=== PATIENT | male | born 1955 | race Caucasian/White ===

== ENCOUNTER 2020-02-04 13:19 | Inpatient (IN) | payer MEDICAID, OTHER ==
[~2020-02-04 13:19] MED LIST: VANCOMYCIN 1,750 MG in SODIUM CHLORIDE 0.9% 500 ML 500 ML IVPB SCH
[2020-02-04 16:49] LABS: Glucose,Whole Blood 105 mg/dL (75-99)
[2020-02-04] MEDS ORDERED: ACETAMINOPHEN TAB 500 MG TAB PO PRN (17:15)
[2020-02-04] MEDS ORDERED: LORATADINE 10 MG TAB PO PRN (17:15)
[2020-02-04] MEDS ORDERED: ALBUTEROL HFA INHALER INHALATION PRN (17:17)
[2020-02-04] MEDS ORDERED: VANCOMYCIN IV PER PHARMACY 1 EACH MISC MISCELLANE PRN (17:19)
[2020-02-04] MEDS ORDERED: NALOXONE 0.4 MG/ML 1 ML VIAL IV PRN (17:29)
--- NOTE | 2020-02-04 17:36 | P.HPIM ---
History of Present Illness H&P Date: 02/04/20 Chief Complaint: sob 64-year-old male with history of Atrial Fibrillation, Heart Failure, CVA/TIA, Diabetes Mellitus presented to the emergency department at [facility] for increasing shortness of breath and cough productive of yellow phlegm. No fevers or chills. He was also feeling dizzy and generally weak. He states he was just discharged from the hospital after he was treated for pneumonia, was given 2 day supply of antibiotics. He is not sure what the antibiotic that he took. He denied having diarrhea, urinary symptoms. No nausea or vomiting. No known sick contacts. Patient states that he was tested for covid 19 twice when he was admitted and it came back negative. In the emergency department his O2 sats were 86% on RA. He is currently requiring 5 L of oxygen. Lactic acid initial 3, follow up 1.3, CK 84, D-dimer 1.21, procal 0.2, flu swab -, CRP 3.71, trop 0.039, PTT 44.4, INR 2.8, PT 30. EKG atrial fibrillation with slow rate 49. CXR showed left lung base and right mid lung consolidation. 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 History of Any Multi-Drug Resistant Organisms: None Reported Past Surgical History: Cholecystectomy Additional Past Surgical History / Comment(s): Arthroscopic knee surgery for meniscus-pt cannot recall laterallity Past Anesthesia/Blood Transfusion Reactions: No Reported Reaction Smoking Status: Former smoker - Past Family History Father Family Medical History: Pneumonia Additional Family Medical History / Comment(s): Father from pneumonia following hip surgery. Mother Family Medical History: Cancer Additional Family Medical History / Comment(s): Mother from metastatic breast cancer. Medications and Allergies Home Medications Medication Instructions Recorded Confirmed Type Acetaminophen Tab [Tylenol Tab] 1,000 mg PO Q6H PRN 02/04/20 02/04/20 History Aspirin [[place] Aspirin EC] 81 mg PO DAILY 02/04/20 02/04/20 History Atorvastatin [Lipitor] 40 mg PO HS 02/04/20 02/04/20 History Carvedilol [Coreg] 6.25 mg PO BID 02/04/20 02/04/20 History Cetirizine HCl 10 mg PO DAILY PRN 02/04/20 02/04/20 History Divalproex Sodium [Depakote] 1,000 mg PO Q12H 02/04/20 02/04/20 History Ergocalciferol (Vitamin D2) 50,000 unit PO Q30D 02/04/20 02/04/20 History [Drisdol] Furosemide [Lasix] 40 mg PO DAILY 02/04/20 02/04/20 History Gabapentin [Neurontin] 300 mg PO HS 02/04/20 02/04/20 History Hydrocodone/Acetaminophen [[place] 1 tab PO QID PRN 02/04/20 02/04/20 History 10-325] Insulin Glargine,Hum.rec.anlog 30 unit SQ HS 02/04/20 02/04/20 History [Basaglar Kwikpen U-100] Ipratropium-Albuterol Nebulize 3 ml INHALATION RT-TID PRN 02/04/20 02/04/20 History [Duoneb 0.5 mg-3 mg/3 ml Soln] Lisinopril [Zestril] 5 mg PO DAILY 02/04/20 02/04/20 History Mirabegron [Myrbetriq] 50 mg PO DAILY 02/04/20 02/04/20 History Montelukast [Singulair] 10 mg PO DAILY 02/04/20 02/04/20 History Tamsulosin [Flomax] 0.4 mg PO DAILY 02/04/20 02/04/20 History Warfarin Sodium [Coumadin] 4 mg PO DAILY 02/04/20 02/04/20 History levETIRAcetam [Keppra] 500 mg PO Q12HR 02/04/20 02/04/20 History metFORMIN HCL [Glucophage] 500 mg PO BID 02/04/20 02/04/20 History sitaGLIPtin [Januvia] 100 mg PO DAILY 02/04/20 02/04/20 History Allergies Allergy/AdvReac Type Severity Reaction Status Date / Time No Known Allergies Allergy Verified 02/04/20 16:12 Physical Exam Vitals: Vital Signs Temp Pulse Resp BP Pulse Ox 02/04/20 15:02 98.0 F 47 L 24 168/78 100 Intake and Output 02/04/20 02/04/20 02/04/20 06:59 14:59 22:59 Intake Total 110 Balance 110 Intake: IV 10 Invasive Line 1 10 Oral 100 Other: Weight 99.9 kg Constitutional: No acute distress, conversant, pleasant Eyes:Anicteric sclerae, moist conjunctiva, no lid-lag, PERRLA, ENMT: Oropharynx clear, no erythema, exudates Neck: Supple, FROM, no masses, or JVD, No carotid bruits, No thyromegaly Lungs: Scattered rhonchi, Clear to percussion, Normal respiratory effort, no accessory muscle use Cardiovascular: Heart regular in rate and rhythm, No murmurs, gallops, or rubs, No peripheral edema Abdominal: Soft, Nontender, no guarding, rebound or rigidity, Normoactive bowel sounds, No hepatomegaly, No splenomegaly, No palpable mass Skin: Normal temperature, tone, texture, turgor, no induration, No subcutaneous nodules, No rash, lesions, No ulcers Extremities: No digital cyanosis, No clubbing, Pedal pulses intact and symmetrical, Radial pulses intact and symmetrical, No calf tenderness Psychiatric: Alert and oriented to person, place and time, appropriate affect, intact judgement Neuro: Muscles Strength 5/5 in all 4 extremities, Sensation to light touch grossly present throughout, Cranial nerves II-XII grossly intact, no focal sensory deficits Results Labs: Abnormal Lab Results - Last 24 Hours (Table) 02/04/20 Range/Units 16:47 POC Glucose (mg/dL) 105 H (75-99) mg/dL Thrombosis Risk Factor Assmnt - Choose All That Apply Any of the Below Risk Factors Present?: Yes Each Factor Represents 1 point: Obesity (BMI >25), or Other Risk Factors: Yes Each Risk Factor Represents 2 Points: Age 61-74 years Other congenital or acquired thrombophilia - If yes, enter type in comment: No Thrombosis Risk Factor Assessment Total Risk Factor Score: 4 Thrombosis Risk Factor Assessment Level: Moderate Risk Assessment and Plan Plan: Healthcare associated pneumonia Sputum cultures Blood cultures Send nasal screen for covid 19 Start broad-spectrum antibiotics cefepime and vancomycin Acute hypoxic respiratory failure secondary to above Steroids, albuterol inhaler Antibiotics as above Diabetes Mellitus 2, with peripheral neuropathy Sliding-scale insulin Hold oral meds Continue long-acting insulin Atrial Fibrillation, CHF Hx of CVA/TIA, Prostate Disorder Chronic back pain All stable Resume meds Patient admitted to inpatient, expected length of stay more than 2 midnights
[2020-02-04] MEDS ORDERED: VANCOMYCIN 2,000 MG in SODIUM CHLORIDE 0.9% 500 ML 500 ML IVPB ONE (18:00)
[2020-02-04] MEDS: methylPREDNISolone SOD SUCCI 40 MG/ML 1 ML VIAL IV SCH (18:35)
[2020-02-04] MEDS: CARVEDILOL 6.25 MG TAB PO SCH (18:35)
[2020-02-04] MEDS: HYDROcodone/APAP 10-325MG 1 EACH TAB PO PRN (18:36)
[2020-02-04 18:48] LABS: Basophils % (A) 1 %; Eosinophils % (A) 0 %; HCT 34.2 % (39.0-53.0); HGB 11.1 gm/dL (13.0-17.5); Lymphocytes # (A) 0.8 k/uL (1.0-4.8); Lymphocytes % (A) 19 %; MCH 30.6 pg (25.0-35.0); MCHC 32.6 g/dL (31.0-37.0); Mean Platelet Volume 8.5; Monocytes # (A) 0.3 k/uL (0-1.0); Monocytes % (A) 8 %; Neutrophils # (A) 2.8 k/uL (1.3-7.7); Neutrophils % (A) 69 %; Platelet Count 244 k/uL (150-450); Poikilocytosis Slight; RBC 3.64 m/uL (4.30-5.90); RDW 14.9 % (11.5-15.5)
[2020-02-04 19:02] LABS: Prothrombin Time 19.8 sec (9.0-12.0)
[2020-02-04 19:24] LABS: ALT 16 U/L (4-49); AST 35 U/L (17-59); African American GFR (CKD) >90 (>60 ml/min/1.73 sqM); Albumin 3.2 g/dL (3.5-5.0); Alkaline Phosphatase 48 U/L (38-126); Anion Gap 4 mmol/L; Blood Urea Nitrogen 26 mg/dL (9-20); Calcium 8.1 mg/dL (8.4-10.2); Carbon Dioxide 29 mmol/L (22-30); Chloride 104 mmol/L (98-107); Glucose 97 mg/dL (74-99); Non-African American GFR(CKD) >90 (>60 ml/min/1.73 sqM); Phosphorus 3.1 mg/dL (2.5-4.5); Potassium 4.2 mmol/L (3.5-5.1); Sodium 137 mmol/L (137-145); Total Bilirubin 0.7 mg/dL (0.2-1.3); Total Protein 6.2 g/dL (6.3-8.2)
[2020-02-04 20:27] LABS: Glucose,Whole Blood 126 mg/dL (75-99)
[2020-02-04] MEDS: levETIRAcetam 500 MG TAB PO SCH (20:36)
[2020-02-04] MEDS: WARFARIN 2 MG TAB PO SCH (20:36)
[2020-02-04] MEDS: ATORVASTATIN 40 MG TAB PO SCH (20:36)
[2020-02-04] MEDS: INSULIN DETEMIR (LEVEMIR) 100 UNIT/ML SYR SQ SCH (20:36)
[2020-02-04] MEDS: GABAPENTIN 300 MG CAP PO SCH (20:36)
[2020-02-04] MEDS: INSULIN ASPART (NovoLOG) 100 UNIT/ML VIAL SQ SCH (20:37)
[2020-02-04] MEDS: DIVALPROEX 500 MG TABLET.DR PO SCH (20:37)
[2020-02-04] MEDS ORDERED: metFORMIN 500 MG TAB PO SCH (21:00)
[2020-02-04] MEDS ORDERED: HYDROXYCHLOROQUINE SULFATE 200 MG TAB PO SCH (22:15)
[2020-02-04] MEDS: CEFEPIME 1 GM in SODIUM CHLORIDE 0.9% 50 ML IVPB SCH (22:18)
[2020-02-05 00:09] VITALS: RESP 18
[2020-02-05] MEDS: VANCOMYCIN 1,750 MG in SODIUM CHLORIDE 0.9% 500 ML 500 ML IVPB SCH ×2 (03:05→10:47)
[2020-02-05] MEDS: methylPREDNISolone SOD SUCCI 40 MG/ML 1 ML VIAL IV SCH ×3 (03:05→17:44)
[2020-02-05] MEDS: HYDROcodone/APAP 10-325MG 1 EACH TAB PO PRN ×3 (06:07→17:46)
[2020-02-05] MEDS: CARVEDILOL 6.25 MG TAB PO SCH ×2 (06:18→17:44)
[2020-02-05 06:24] LABS: Glucose,Whole Blood 157 mg/dL (75-99)
[2020-02-05] MEDS: INSULIN ASPART (NovoLOG) 100 UNIT/ML VIAL SQ SCH ×4 (06:40→20:25)
[2020-02-05 08:18] LABS: African American GFR (CKD) >90 (>60 ml/min/1.73 sqM); Non-African American GFR(CKD) >90 (>60 ml/min/1.73 sqM)
[2020-02-05] MEDS ORDERED: HYDROXYCHLOROQUINE SULFATE 200 MG TAB PO SCH (09:00)
[2020-02-05] MEDS ORDERED: NON FORMULARY DRUG (Sitagliptin 100 MG) PO SCH (09:00)
[2020-02-05] MEDS: TAMSULOSIN 0.4 MG CAP.ER.24H PO SCH (10:42)
[2020-02-05] MEDS: ASPIRIN 81 MG PO SCH (10:42)
[2020-02-05] MEDS: DIVALPROEX 500 MG TABLET.DR PO SCH ×2 (10:42→20:25)
[2020-02-05] MEDS: LISINOPRIL 5 MG TAB PO SCH (10:42)
[2020-02-05] MEDS: MONTELUKAST 10 MG TAB PO SCH (10:42)
[2020-02-05] MEDS: FUROSEMIDE 40 MG TAB PO SCH (10:42)
[2020-02-05] MEDS: levETIRAcetam 500 MG TAB PO SCH ×2 (10:42→20:25)
[2020-02-05] MEDS: CEFEPIME 1 GM in SODIUM CHLORIDE 0.9% 50 ML IVPB SCH (10:43)
[2020-02-05] MEDS: MYRBETRIQ (Mirabegron) 50 MG PO SCH (10:43)
--- NOTE | 2020-02-05 10:52 | P.PN ---
<Tiffanie Merritt - Last Filed: 02/05/20 12:02> Subjective Progress Note Date: 02/05/20 CHIEF COMPLAINT: SOB HISTORY OF PRESENT ILLNESS: 64-year-old male with history of Atrial Fibrillation, Heart Failure, CVA/TIA, Diabetes Mellitus presented to the emergency department at [facility] for increasing shortness of breath and cough productive of yellow phlegm. No fevers or chills. He was also feeling dizzy and generally weak. He states he was just discharged from the hospital after he was treated for pneumonia, was given 2 day supply of antibiotics. He is not sure what the antibiotic that he took. He denied having diarrhea, urinary symptoms. No nausea or vomiting. No known sick contacts. Patient states that he was tested for covid 19 twice when he was admitted and it came back negative. In the emergency department his O2 sats were 86% on RA. He is currently requiring 5 L of oxygen. Lactic acid initial 3, follow up 1.3, CK 84, D-dimer 1.21, procal 0.2, flu swab -, CRP 3.71, trop 0.039, PTT 44.4, INR 2.8, PT 30. EKG atrial fibrillation with slow rate 49. CXR showed left lung base and right mid lung consolidation. 02/05/2020: Patient examined at the bedside. He denies SOB. He is on 2L NC. O2 sats greater than 92%. Reports minimal cough. Denies nausea, vomiting, or diarrhea. PHYSICAL EXAM: VITAL SIGNS: Reviewed GENERAL: Well-developed in no acute distress. HEENT: No sclera icterus. Extraocular movements grossly intact. Moist buccal mucosa. Head is atraumatic, normocephalic. Hears conversational speech. No nasal drainage. NECK: Supple without lymphadenopathy. CHEST: Non-labored respirations and equal bilateral excursions. CARDIOVASCULAR: Irregular rhythm. Palpable 2+ pulses. ABDOMEN: Soft. Nondistended. Nontender. MUSCULOSKELETAL: No clubbing or cyanosis. NEUROLOGIC: No focal or lateralizing signs. Cranial nerves II through XII grossly intact. PSYCH: Appropriate affect. Alert and oriented to person, place and time. SKIN: Well perfused. Good skin turgor. ASSESSMENT AND PLAN: 1. Covid19 Pneumonia -Supportive care -Continue Plaquenil. Change dosing to BID for total of 8 doses. -Hospital out of Zinc per bonnie Salmon -Continue to monitor respiratory status -Monitor labs -Continue contact and droplet precautions -Discontinue antibiotics -Albuterol inhaler -Continue IV steroids 2. Acute hypoxic respiratory failure, secondary to above -Continue to wean oxygen as tolerated 3. Diabetes mellitus, type II -Continue Novolog sliding scale -Accu-checks -Continue Levemir 4. Atrial fibrillation, chronic -Rate controlled -Continue telemetry monitoring -Continue Coumadin 5. History of congestive heart failure -Type unknown, no recent echo available -Continue daily lasix -Monitor daily weights 6. History of CVA/TIA -Continue aspirin and Lipitor DVT prophylaxis: Coumadin Discussed with: Patient Anticipated discharge: 1-[address]: Home Nurse practitioner note has been reviewed by physician. Signing provider agrees with the documented findings, assessment, and plan of care. Objective - Vital Signs Vital signs: Vital Signs Temp 97.8 F 02/05/20 03:20 Pulse 48 L 02/05/20 03:20 Resp 18 02/05/20 03:20 BP 132/71 02/05/20 03:20 Pulse Ox 97 02/05/20 03:20 Intake & Output 02/04/20 02/05/20 02/05/20 18:59 06:59 18:59 Intake Total 350 80 Balance 350 80 Weight 99.9 kg 95.5 kg Intake: IV 10 80 Invasive Line 1 10 Invasive Line 2 80 Oral 340 Other: Voiding Method Toilet Toilet - Labs CBC & Chem 7: 02/04/20 18:31 02/05/20 06:44 Labs: Abnormal Lab Results - Last 24 Hours (Table) 02/04/20 02/04/20 02/04/20 Range/Units 16:47 18:20 18:31 RBC 3.64 L (4.30-5.90) m/uL Hgb 11.1 L (13.0-17.5) gm/dL Hct 34.2 L (39.0-53.0) % Lymphocytes # 0.8 L (1.0-4.8) k/uL PT (9.0-12.0) sec INR (<1.2) BUN (9-20) mg/dL POC Glucose (mg/dL) 105 H (75-99) mg/dL Calcium (8.4-10.2) mg/dL Total Protein (6.3-8.2) g/dL Albumin (3.5-5.0) g/dL Coronavirus (PCR) Detected A (Not Detectd) 02/04/20 02/04/20 02/04/20 Range/Units 18:31 18:31 20:26 RBC (4.30-5.90) m/uL Hgb (13.0-17.5) gm/dL Hct (39.0-53.0) % Lymphocytes # (1.0-4.8) k/uL PT 19.8 H (9.0-12.0) sec INR 2.0 H (<1.2) BUN 26 H (9-20) mg/dL POC Glucose (mg/dL) 126 H (75-99) mg/dL Calcium 8.1 L (8.4-10.2) mg/dL Total Protein 6.2 L (6.3-8.2) g/dL Albumin 3.2 L (3.5-5.0) g/dL Coronavirus (PCR) (Not Detectd) 02/05/20 Range/Units 06:23 RBC (4.30-5.90) m/uL Hgb (13.0-17.5) gm/dL Hct (39.0-53.0) % Lymphocytes # (1.0-4.8) k/uL PT (9.0-12.0) sec INR (<1.2) BUN (9-20) mg/dL POC Glucose (mg/dL) 157 H (75-99) mg/dL Calcium (8.4-10.2) mg/dL Total Protein (6.3-8.2) g/dL Albumin (3.5-5.0) g/dL Coronavirus (PCR) (Not Detectd) <Erum Warren - Last Filed: 02/05/20 16:22> Objective - Vital Signs Vital signs: Vital Signs Temp 97.6 F 02/05/20 15:11 Pulse 46 L 02/05/20 15:11 Resp 18 02/05/20 15:12 BP 188/81 02/05/20 15:11 Pulse Ox 92 L 02/05/20 15:11 Intake & Output 02/04/20 02/05/20 02/05/20 18:59 06:59 18:59 Intake Total 350 80 310 Balance 350 80 310 Weight 99.9 kg 95.5 kg Intake: IV 10 80 50 Invasive Line 1 10 Invasive Line 2 80 50 Oral 340 260 Other: Voiding Method Toilet Toilet Toilet # Voids 3 - Labs CBC & Chem 7: 02/04/20 18:31 02/05/20 06:44 Labs: Abnormal Lab Results - Last 24 Hours (Table) 02/04/20 02/04/20 02/04/20 Range/Units 16:47 18:20 18:31 RBC 3.64 L (4.30-5.90) m/uL Hgb 11.1 L (13.0-17.5) gm/dL Hct 34.2 L (39.0-53.0) % Lymphocytes # 0.8 L (1.0-4.8) k/uL PT (9.0-12.0) sec INR (<1.2) BUN (9-20) mg/dL POC Glucose (mg/dL) 105 H (75-99) mg/dL Calcium (8.4-10.2) mg/dL Total Protein (6.3-8.2) g/dL Albumin (3.5-5.0) g/dL Procalcitonin (0.02-0.09) ng/mL Coronavirus (PCR) Detected A (Not Detectd) 02/04/20 02/04/20 02/04/20 Range/Units 18:31 18:31 18:31 RBC (4.30-5.90) m/uL Hgb (13.0-17.5) gm/dL Hct (39.0-53.0) % Lymphocytes # (1.0-4.8) k/uL PT 19.8 H (9.0-12.0) sec INR 2.0 H (<1.2) BUN 26 H (9-20) mg/dL POC Glucose (mg/dL) (75-99) mg/dL Calcium 8.1 L (8.4-10.2) mg/dL Total Protein 6.2 L (6.3-8.2) g/dL Albumin 3.2 L (3.5-5.0) g/dL Procalcitonin 0.33 H (0.02-0.09) ng/mL Coronavirus (PCR) (Not Detectd) 02/04/20 02/05/20 Range/Units 20:26 06:23 RBC (4.30-5.90) m/uL Hgb (13.0-17.5) gm/dL Hct (39.0-53.0) % Lymphocytes # (1.0-4.8) k/uL PT (9.0-12.0) sec INR (<1.2) BUN (9-20) mg/dL POC Glucose (mg/dL) 126 H 157 H (75-99) mg/dL Calcium (8.4-10.2) mg/dL Total Protein (6.3-8.2) g/dL Albumin (3.5-5.0) g/dL Procalcitonin (0.02-0.09) ng/mL Coronavirus (PCR) (Not Detectd) Microbiology - Last 24 Hours (Table) 02/05/20 08:13 Sputum Culture - Preliminary Sputum Assessment and Plan Assessment: I saw and evaluated the patient and discussed the care with JOON Hurd on 02/05/2020. I agree with the subjective, assessment and plan as documented in the note above. Patient is currently on room air saturating low 90s. He has been experiencing symptoms for the past few days. Antibiotics have been discontinued and his symptoms are likely related to COVID as he is positive, rather than bact erial infection. We'll continue to monitor the patient overnight for progression of symptoms. Likely discharge in 1-2 days. Physical exam: General: Non toxic, No distress, appears at stated age Skin: warm, dry Lungs: chest rise symmetrical, no accessory muscle use, no conversational dyspnea Cardiovascular: + dorsal pedis pulse bilateral, capillary refill<2 seconds, no lower extremity edema?
[2020-02-05] MEDS ORDERED: HYDROXYCHLOROQUINE SULFATE 200 MG TAB PO ONE ×2 (12:30→21:00)
[2020-02-05 16:53] LABS: INR 1.6 (<1.2); Prothrombin Time 16.2 sec (9.0-12.0)
[2020-02-05] MEDS: WARFARIN 2 MG TAB PO SCH (17:44)
[2020-02-05 17:59] LABS: Glucose,Whole Blood 271 mg/dL (75-99)
[2020-02-05 20:10] LABS: Glucose,Whole Blood 264 mg/dL (75-99)
[2020-02-05] MEDS ORDERED: hydrALAZINE HCL 25 MG TAB PO STA (20:13)
[2020-02-05] MEDS: ATORVASTATIN 40 MG TAB PO SCH (20:25)
[2020-02-05] MEDS: GABAPENTIN 300 MG CAP PO SCH (20:25)
[2020-02-05] MEDS: INSULIN DETEMIR (LEVEMIR) 100 UNIT/ML SYR SQ SCH (20:26)
[2020-02-06] MEDS: HYDROcodone/APAP 10-325MG 1 EACH TAB PO PRN ×5 (00:11→16:39)
[2020-02-06] MEDS: methylPREDNISolone SOD SUCCI 40 MG/ML 1 ML VIAL IV SCH ×2 (03:01→08:19)
[2020-02-06 05:57] LABS: Glucose,Whole Blood 261 mg/dL (75-99)
[2020-02-06] MEDS: CARVEDILOL 6.25 MG TAB PO SCH ×2 (05:58→16:16)
[2020-02-06] MEDS: INSULIN ASPART (NovoLOG) 100 UNIT/ML VIAL SQ SCH ×3 (06:19→16:40)
[2020-02-06] MEDS: MYRBETRIQ (Mirabegron) 50 MG PO SCH (07:49)
[2020-02-06 08:14] LABS: African American GFR (CKD) >90 (>60 ml/min/1.73 sqM); Non-African American GFR(CKD) >90 (>60 ml/min/1.73 sqM)
[2020-02-06] MEDS: DIVALPROEX 500 MG TABLET.DR PO SCH (08:18)
[2020-02-06] MEDS: FUROSEMIDE 40 MG TAB PO SCH (08:18)
[2020-02-06] MEDS: TAMSULOSIN 0.4 MG CAP.ER.24H PO SCH (08:18)
[2020-02-06] MEDS: ASPIRIN 81 MG PO SCH (08:18)
[2020-02-06] MEDS: LISINOPRIL 5 MG TAB PO SCH (08:19)
[2020-02-06] MEDS: MONTELUKAST 10 MG TAB PO SCH (08:19)
[2020-02-06] MEDS: levETIRAcetam 500 MG TAB PO SCH (08:20)
[2020-02-06] MEDS ORDERED: HYDROXYCHLOROQUINE SULFATE 200 MG TAB PO SCH (09:00)
[2020-02-06] MEDS ORDERED: DOXYCYCLINE 100 MG CAP PO SCH (09:45)
[2020-02-06] MEDS ORDERED: VANCOMYCIN TROUGH DUE 1 EACH MISC MISCELLANE ONE (10:00)
--- NOTE | 2020-02-06 10:42 | XR ---
EXAMINATION TYPE: XR chest 1V portable DATE OF EXAM: 02/06/2020 HISTORY: sob. REFERENCE: NONE. FINDINGS: Heart size is minimally prominent. This is minimal atelectasis at the left lung base. Lungs otherwise clear. Pleural space are clear. IMPRESSION: 1. MILD CARDIOMEGALY. 2. MINIMAL PLATELIKE ATELECTASIS, LEFT LUNG BASE.
[2020-02-06 11:38] VITALS: BP 150/64; PULSE 41; TEMP 98.4
[2020-02-06 11:43] LABS: Glucose,Whole Blood 292 mg/dL (75-99)
[2020-02-06 13:52] LABS: Basophils % (A) 0 %; Eosinophils # (A) 0.1 k/uL (0-0.7); Eosinophils % (A) 1 %; HCT 36.9 % (39.0-53.0); HGB 11.9 gm/dL (13.0-17.5); Hypochromasia Slight; Lymphocytes # (A) 0.6 k/uL (1.0-4.8); Lymphocytes % (A) 5 %; MCH 30.7 pg (25.0-35.0); MCHC 32.1 g/dL (31.0-37.0); MCV 95.5 fL (80.0-100.0); Mean Platelet Volume 7.4; Monocytes # (A) 0.3 k/uL (0-1.0); Monocytes % (A) 2 %; Neutrophils # (A) 11.1 k/uL (1.3-7.7); Neutrophils % (A) 92 %; Platelet Count 245 k/uL (150-450); Poikilocytosis Slight; RBC 3.87 m/uL (4.30-5.90); RDW 14.5 % (11.5-15.5); WBC 12.1 k/uL (3.8-10.6)
[2020-02-06 14:00] LABS: ALT 17 U/L (4-49); AST 32 U/L (17-59); African American GFR (CKD) >90 (>60 ml/min/1.73 sqM); Albumin 3.4 g/dL (3.5-5.0); Alkaline Phosphatase 55 U/L (38-126); Anion Gap 11 mmol/L; Blood Urea Nitrogen 26 mg/dL (9-20); Calcium 8.4 mg/dL (8.4-10.2); Carbon Dioxide 25 mmol/L (22-30); Chloride 101 mmol/L (98-107); Creatine Kinase 84 U/L (55-170); Glucose 216 mg/dL (74-99); LDH 734 U/L (313-618); Non-African American GFR(CKD) >90 (>60 ml/min/1.73 sqM); Potassium 4.5 mmol/L (3.5-5.1); Sodium 137 mmol/L (137-145); Total Bilirubin 0.6 mg/dL (0.2-1.3); Total Protein 6.7 g/dL (6.3-8.2)
--- NOTE | 2020-02-06 16:10 | P.DS ---
Providers Date of admission: 02/04/20 15:06 Expected date of discharge: 02/06/20 Attending physician: Rudy Lozano MD Primary care physician: [facility] Course: Patient is a 64-year-old male with PMH of atrial fibrillation, CHF, CVA, diabetes mellitus and presented to [facility] for increased shortness of breath and productive cough. He was previously seen in the ED prior to admission and discharge with a 2 day supply of antibiotics. Apparently per patient, he was tested for COVID19 twice which came back negative. He was noted to have an O2 saturation of 86% on room air requiring 5 L of oxygen. His initial lactic acid was 3. Chest x-ray showed left lung base and right midlung consolidation. Patient was transferred to [facility] as there were no beds available due to the COVID 19 pandemic. Patient was initially started on vancomycin and cefepime for concerns of pneumonia. COVID testing came back positive here and patient was started on hydroxychloroquine. Antibiotics were deescalated when his COVID result came back positive. Pro-calcitonin was elevated at 0.33 for which patient was started on doxycycline by mouth. Otherwise, his home medications were resumed. Patient continued to show considerable improvement in his breathing. Patient was seen and examined on 02/06/2020. He is currently saturating mid 90s on room air. He denies any chest pain or shortness of breath. He does report a dry cough. He has been ambulating in his room without much difficulties. Chest x-ray is pending from this morning. General: [non toxic], [no distress], [appears at stated age] Derm: [warm], [dry] Head: [atraumatic], [normocephalic], [symmetric] Eyes: [EOMI], [no lid lag], [anicteric sclera] Mouth: [no lip lesion], [mucus membranes moist] Cardiovascular: [S1S2 irreg], [no murmur], [positive DP pulse bilateral], Lungs: [CTA bilateral], [no rhonchi, no rales] , [no accessory muscle use] Abdominal: [soft], [ nontender to palpation], [no guarding], [no appreciable organomegaly] Ext: [no gross muscle atrophy], [no edema], [no contractures] Neuro: [no focal neuro deficits] Psych: [Alert], [oriented], [appropriate affect] Acute hypoxic respiratory failure due to COVID 19 pneumonia with possible superimposed bacterial pneumonia. Diabetes mellitus Chronic atrial fibrillation History of CHF History of CVA Patient has improved considerably and is saturating mid 90s on room air. He is to complete a course of hydroxychloroquine. There might be a component of bacterial pneumonia given his elevation in pro-calcitonin. We'll continue dox ycycline to complete a total of 7 days. Otherwise, his home medications have been restarted. Patient will be advised of warning symptoms of when to return back to the hospital. Follow-up with PCP within 2 days of discharge. This complex discharge took about 35 minutes to complete. Patient Condition at Discharge: Stable Plan - Discharge Summary Discharge Rx Participant: No New Discharge Prescriptions: New Hydroxychloroquine Sulfate [Plaquenil] 200 mg PO BID #7 tab predniSONE 40 mg PO DAILY #16 tab Albuterol Inhaler [Ventolin Hfa Inhaler] 2 puff INHALATION RT-QID PRN #1 inhaler PRN Reason: Shortness Of Breath Or Wheezing Doxycycline [Vibramycin] 100 mg PO BID #14 cap Continue Tamsulosin [Flomax] 0.4 mg PO DAILY Cetirizine HCl 10 mg PO DAILY PRN PRN Reason: Allergy Symptoms Mirabegron [Myrbetriq] 50 mg PO DAILY Hydrocodone/Acetaminophen [[place] 10-325] 1 tab PO QID PRN PRN Reason: Pain metFORMIN HCL [Glucophage] 500 mg PO BID Montelukast [Singulair] 10 mg PO DAILY Lisinopril [Zestril] 5 mg PO DAILY sitaGLIPtin [Januvia] 100 mg PO DAILY levETIRAcetam [Keppra] 500 mg PO Q12HR Furosemide [Lasix] 40 mg PO DAILY Divalproex Sodium [Depakote] 1,000 mg PO Q12H Ipratropium-Albuterol Nebulize [Duoneb 0.5 mg-3 mg/3 ml Soln] 3 ml INHALATION RT-TID PRN PRN Reason: Shortness Of Breath Gabapentin [Neurontin] 300 mg PO HS Ergocalciferol (Vitamin D2) [Drisdol] 50,000 unit PO Q30D Warfarin Sodium [Coumadin] 4 mg PO DAILY Carvedilol [Coreg] 6.25 mg PO BID Insulin Glargine,Hum.rec.anlog [Basaglar Kwikpen U-100] 30 unit SQ HS Atorvastatin [Lipitor] 40 mg PO HS Aspirin [[place] Aspirin EC] 81 mg PO DAILY Acetaminophen Tab [Tylenol] 1,000 mg PO Q6H PRN PRN Reason: Pain Discharge Medication List Acetaminophen Tab [Tylenol] 1,000 mg PO Q6H PRN 02/04/20 [History] Aspirin [[place] Aspirin EC] 81 mg PO DAILY 02/04/20 [History] Atorvastatin [Lipitor] 40 mg PO HS 02/04/20 [History] Carvedilol [Coreg] 6.25 mg PO BID 02/04/20 [History] Cetirizine HCl 10 mg PO DAILY PRN 02/04/20 [History] Divalproex Sodium [Depakote] 1,000 mg PO Q12H 02/04/20 [History] Ergocalciferol (Vitamin D2) [Drisdol] 50,000 unit PO Q30D 02/04/20 [History] Furosemide [Lasix] 40 mg PO DAILY 02/04/20 [History] Gabapentin [Neurontin] 300 mg PO HS 02/04/20 [History] Hydrocodone/Acetaminophen [[place] 10-325] 1 tab PO QID PRN 02/04/20 [History] Insulin Glargine,Hum.rec.anlog [Basag[place] Kwikpen U-100] 30 unit SQ HS 02/04/20 [History] Ipratropium-Albuterol Nebulize [Duoneb 0.5 mg-3 mg/3 ml Soln] 3 ml INHALATION RT-TID PRN 02/04/20 [History] Lisinopril [Zestril] 5 mg PO DAILY 02/04/20 [History] Mirabegron [Myrbetriq] 50 mg PO DAILY 02/04/20 [History] Montelukast [Singulair] 10 mg PO DAILY 02/04/20 [History] Tamsulosin [Flomax] 0.4 mg PO DAILY 02/04/20 [History] Warfarin Sodium [Coumadin] 4 mg PO DAILY 02/04/20 [History] levETIRAcetam [Keppra] 500 mg PO Q12HR 02/04/20 [History] metFORMIN HCL [Glucophage] 500 mg PO BID 02/04/20 [History] sitaGLIPtin [Januvia] 100 mg PO DAILY 02/04/20 [History] Albuterol Inhaler [Ventolin Hfa Inhaler] 2 puff INHALATION RT-QID PRN #1 inhaler 02/06/20 [Rx] Doxycycline [Vibramycin] 100 mg PO BID #14 cap 02/06/20 [Rx] Hydroxychloroquine Sulfate [Plaquenil] 200 mg PO BID #7 tab 02/06/20 [Rx] predniSONE 40 mg PO DAILY #16 tab 02/06/20 [Rx] Follow up Appointment(s)/Referral(s): Nonstaff,Physician [REFERRING] - 3 Days Activity/Diet/Wound Care/Special Instructions: Diet: Carb consistent Follow-up with PCP within 3 days of discharge. Take all medications as advised. Come back to the ED for worsening fevers greater than 100.4 Fahrenheit, worsening shortness of breath, dizziness or chest pain. Discharge Disposition: HOME SELF-CARE
[2020-02-06] MEDS: WARFARIN 2 MG TAB PO SCH (16:39)
[2020-02-06 16:42] LABS: Glucose,Whole Blood 216 mg/dL (75-99)
[2020-02-06 23:08] LABS: Ferritin 1119.7 ng/mL (22.0-322.0)
[2020-02-26] MEDS ORDERED: ERGOCALCIFEROL 50,000 UNIT CAP PO SCH (09:00)
== END 2020-02-06 18:00 | disposition home or self-care (01) | DRG 177 ==
LOC: 3SCARD 15:06
PROVIDERS: ADMIT Internal Medicine; ATTEND Internal Medicine
DX: U07.1 COVID-19 (principal); J12.89 Other viral pneumonia; J96.01 Acute respiratory failure with hypoxia; J15.9 Unspecified bacterial pneumonia; I48.20 Chronic atrial fibrillation, unspecified; E11.42 Type 2 diabetes mellitus with diabetic polyneuropathy; M19.90 Unspecified osteoarthritis, unspecified site; G89.29 Other chronic pain; I50.9 Heart failure, unspecified; Z86.73 Personal history of transient ischemic attack (TIA), and cerebral infarction without residual deficits; Z79.84 Long term (current) use of oral hypoglycemic drugs; Z79.01 Long term (current) use of anticoagulants; Z79.82 Long term (current) use of aspirin; Z79.899 Other long term (current) drug therapy; Z87.891 Personal history of nicotine dependence; Z87.01 Personal history of pneumonia (recurrent); Z90.49 Acquired absence of other specified parts of digestive tract; Z98.890 Other specified postprocedural states; Z80.3 Family history of malignant neoplasm of breast; Z83.6 Family history of other diseases of the respiratory system
CPT/HCPCS: 71045; 80053; 82550; 82565; 82728; 83615; 83735; 84100; 84145; 85025; 85379; 85610; 87040; 87070; 87205; 87635